=== PATIENT | female | born 1970 | race Caucasian/White ===

== ENCOUNTER → 2017-07-11 08:29 | Outpatient (CLI) | payer BC, SELFPAY ==
--- NOTE | 2017-07-11 08:32 | MM_ITS ---
MM Dig screening mamm BI w/CAD CAD Screening COMPARISON: Digital mammograms 12/28/2014 and 02/18/2016 INDICATION: There is no personal or family history of breast cancer. TECHNIQUE: Standard CC and MLO images were obtained. R2 CAD reviewed. FINDINGS: Moderate diffuse fiberglass or densities are seen in the central portions of both breast. Again is a dominant density just deep to the nipple the right breast at 12:00 position found be due to a benign cyst on ultrasound 01/19/2015 and it is either stable or may have shown a slight decrease in size from the most recent study. There is a benign-appearing calcification right breast. There are no suspicious microcalcifications. IMPRESSION: Moderate breast density with stable asymmetric benign-appearing density right breast BI-RADS Category: 2 Benign Finding(s) RECOMMENDED FOLLOW-UP: 1YR - 1 YEAR FOLLOW-UP (A letter has been sent to the patient regarding results of the study.)
== END ==
PROVIDERS: PCP Family Medicine; Visit Provider Nurse Practitioner Obstetrics & Gynecology
DX: Z12.31 Encounter for screening mammogram for malignant neoplasm of breast (principal)
CPT/HCPCS: 77067

== ENCOUNTER → 2019-03-07 09:21 | Outpatient (CLI) | payer BC, SELFPAY ==
--- NOTE | 2019-03-07 09:28 | MM_ITS ---
PROCEDURE: MM DIG SCREENING MAMM BI W/CAD CLINICAL INDICATION: Routine Screening Mammogram There is no personal or family history of breast cancer. COMPARISON: DMDXUL DIG MAMM-DX UNI-LT from 01/19/2015 DMSB DIG MAMM-SCREEN LIZZETTE from 02/18/2016 [facility] MM Dig screening mamm BI w/CAD from 07/11/2017 TECHNIQUE: Standard CC and MLO images were obtained. R2 CAD reviewed. FINDINGS: Diffuse fibroglandular densities are seen throughout both breast most prominent in the upper outer quadrants. Findings of bilateral and symmetrical except for the stable asymmetric benign-appearing density right breast shown to be a cyst on previous ultrasound exam. It is actually slightly smaller in size than on previous exams. There is no suspicious lesion and no suspicious microcalcifications. IMPRESSION: Moderate diffuse breast density with no suspicious lesions seen BI-RAD Category: 2 Benign Finding(s) FOLLOW-UP: 1YR 1 Year Follow-up (A letter has been sent to the patient regarding results of the study.) Dictated by: Dr. Porfirio Gallego MD 03/08/2019 15:[address] Porfirio Gallego MD in [place] 03/08/2019 15:41
== END ==
PROVIDERS: PCP Family Medicine; Visit Provider Nurse Practitioner Obstetrics & Gynecology
DX: Z12.31 Encounter for screening mammogram for malignant neoplasm of breast (principal)
CPT/HCPCS: 77067

== ENCOUNTER → 2020-03-15 09:57 | Outpatient (CLI) | payer BC, SELFPAY ==
--- NOTE | 2020-03-15 10:02 | MM_ITS ---
PROCEDURE: MM DIG SCREENING MAMM BI W/CAD Digital Breast Tomosynthesis Included CLINICAL INDICATION: SCREENING There is no personal or family history of breast cancer. COMPARISON: MG DMSB DIG MAMM-SCREEN LIZZETTE from 02/18/2016 MG [facility] MM Dig screening mamm BI w/CAD from 07/11/2017 MG MM DIG SCREENING MAMM BI W/CAD from 03/07/2019 TECHNIQUE: Standard CC and MLO images and 3D Tomosynthesis was obtained. R2 CAD reviewed. FINDINGS: Moderate diffuse fibroglandular densities are seen in both breasts. There is stable somewhat asymmetric glandular elements upper-outer quadrant right breast. Persistent density upper-outer quadrant right breast is again seen shown to be a cyst on previous ultrasound exam. However there has been interval enlargement of this probable cyst since the previous exam and recommend the patient return for ultrasound right breast. There is no suspicious lesion no suspicious microcalcifications. IMPRESSION: Fibrofatty parenchyma with possible change in density right breast BI-RAD Category: 0 Need Additional Imaging Evaluation FOLLOW-UP: IMM Immediate Follow-up Recommended (A letter has been sent to the patient regarding results of the study.) Dictated by: Dr. Porfirio Gallego MD 03/16/2020 10:08 Dr. Porfirio Gallego MD in [place] 03/16/2020 10:08
== END ==
PROVIDERS: PCP Family Medicine; Visit Provider Obstetrics & Gynecology
DX: Z12.31 Encounter for screening mammogram for malignant neoplasm of breast (principal)
CPT/HCPCS: 77063; 77067

== ENCOUNTER → 2020-03-23 14:32 | Outpatient (CLI) | payer BC, SELFPAY ==
--- NOTE | 2020-03-23 14:32 | US_ITS ---
PROCEDURE: MM DIG MAMM DX UNILAT RT CAD DIGITAL BREAST TOMOSYNTHESIS INCLUDED RIGHT BREAST ULTRASOUND COMPLETE WITH AXILLA CLINICAL INDICATION: palpable rt breast nodule COMPARISON: US BR US BREAST-RT COMPLETE W/AXILLA from 01/19/2015 MG [facility] MM Dig screening mamm BI w/CAD from 07/11/2017 MG MM DIG SCREENING MAMM BI W/CAD from 03/07/2019 MG MM DIG SCREENING MAMM BI W/CAD from 03/15/2020 US US BREAST RT COMPLETE from 03/23/2020 TECHNIQUE: Standard CC and MLO images and 3D Tomosynthesis was obtained. R2 CAD reviewed. FINDINGS: Right-sided mammogram shows average fibroglandular tissue. Asymmetric increased density is present in the upper inner aspect of the right breast. This is rounded in nature measuring approximately 2 cm. This is not well demonstrated on the focal spot compression views this does correspond to the abnormality noted on the screening mammogram. There is some mild skin thickening of the right breast. Right breast ultrasound: There is a hypoechoic mass in the 12 o'clock region of the right breast corresponding to the mammographic abnormality. This measures approximately 2 by 2.6 cm. The margins are lobulated. There is some slight enhanced through transmission of sound. This has developed since the previous ultrasound. Previously there was a simple cyst in this area on 01/19/2015. There are other small cyst noted in the right breast. In addition, there is a 14 x 10 mm hypoechoic nodule at the 11 o'clock region near the nipple. This does show low level internal echoes but does show some enhanced through transmission of sound. In the right axilla there is an enlarged lymph node which measures 3.7 by 2 cm. This node is hypoechoic and is suspicious. IMPRESSION: Suspicious 2.5 cm mass in the 12 o'clock region of the right breast with an additional mildly suspicious nodule in the henley o'clock region at 14 mm and also an enlarged lymph node in the right axilla. BI-RAD Category: 5 Highly Suggestive Of Malignancy FOLLOW-UP: Suggest ultrasound-guided mammotome biopsy of the 12 o'clock breast mass, fine needle aspiration or core biopsy of the eleven o'clock nodule, and FNA of the enlarged right axillary lymph node. (A letter has been sent to the patient regarding results of the study.) Dictated by: Tanner Burks MD 03/25/2020 10:58 Tanner Burks MD in [place] 03/25/2020 10:58
== END ==
PROVIDERS: PCP Family Medicine; Visit Provider Obstetrics & Gynecology
DX: R92.8 Other abnormal and inconclusive findings on diagnostic imaging of breast (principal)
CPT/HCPCS: 76641; 77061; 77065; G0279

== ENCOUNTER → 2020-04-06 09:34 | Outpatient (CLI) | payer BC, SELFPAY ==
--- NOTE | 2020-04-06 | MM_ITS ---
PROCEDURE: US BIOPSY BREAST RT CLINICAL INDICATION: US guided breast biopsy Right breast nodule COMPARISON: MG MM DIG SCREENING MAMM BI W/CAD from 03/15/2020 US US BREAST RT COMPLETE from 03/23/2020 MG MM CLIP PLACEMENT RT from 04/06/2020 FINDINGS: Time-out procedure was performed. Under aseptic conditions and local anesthesia with 1 percent buffered lidocaine and deeper anesthesia with lidocaine mixed with epinephrine mammotome needle was inserted into the suspicious nodule at 12 o'clock and multiple cores were obtained. Sterile non ferromagnetic clip was placed. Following this, fine needle aspiration was performed of the small solid-appearing nodule at 11 o'clock and at 10 o'clock. Fine needle aspiration was then performed of the palpable right axillary node.. No immediate complications. Mammo clip placement: Post biopsy mammogram demonstrates postsurgical changes with a clip placed along the anterior and lateral aspect of the central breast nodule. Pathology: 12 o'clock breast nodule invasive ductal carcinoma grade 3 Axillary lymph node FNA: Malignant FNA 11 o'clock: Negative for malignant cells. FNA 10 o'clock: Atypical IMPRESSION: Uneventful ultrasound-guided mammotome biopsy of the right breast at 12 o'clock demonstrating invasive ductal carcinoma. FNA of axillary lymph node is malignant. FNA at 11 o'clock negative for malignant cells. FNA 10 o'clock atypical cells. Heme Onc and surgical consult recommended. Dictated by: Tanner Burks MD 05/10/2020 19:44 Tanner Burks MD in [place] 05/10/2020 19:44
== END ==
PROVIDERS: PCP Family Medicine; Visit Provider Obstetrics & Gynecology
DX: R92.8 Other abnormal and inconclusive findings on diagnostic imaging of breast (principal); C50.811 Malignant neoplasm of overlapping sites of right female breast; Z17.1 Estrogen receptor negative status [ER-]
CPT/HCPCS: 19083; 77065; C2618

== ENCOUNTER → 2022-04-27 06:57 | Outpatient (CLI) | payer BC, SELFPAY ==
[2022-04-27 18:04] LABS: Basophils # 0.1 K/mm3 (0-0.2); Basophils % 0.9 % (0.1-2.0); Eosinophils # 0.2 K/mm3 (0.0-0.4); Eosinophils % 2.5 % (0.1-12.0); Hematocrit 45.1 % (37.0-47.0); Hemoglobin 14.2 g/dL (12.2-16.2); Lymphocytes % 33.5 % (10-50); Mean Corpuscular HGB Conc 31.5 g/dL (31.8-35.4); Mean Corpuscular Hemoglobin 32.3 pg (27.0-31.2); Mean Corpuscular Volume 102.6 fl (81-99); Mean Platelet Volume 8.8 fl (7.4-10.4); Monocytes # 0.4 K/mm3 (0.1-1.0); Monocytes % 6.7 % (1.7-9.3); Neutrophils # 3.3 K/mm3 (1.8-7.8); Neutrophils % 56.4 % (37.0-80.0); Platelet Count 328 K/mm3 (142-424); Red Cell Distribution Width 13.5 % (11.5-17.5); White Blood Count 5.9 K/mm3 (4.8-10.8)
[2022-04-27 18:29] LABS: Alanine Aminotransferase 26 U/L (12-78); Albumin Level 4.9 g/dl (3.5-5.0); Albumin/Globulin Ratio 1.4 (1.1-1.8); Alkaline Phosphatase 71 U/L (38-126); Anion Gap 12.5 mEq/L (5-15); Aspartate Amino Transferase 27 U/L (14-36); Bilirubin,Total 0.6 mg/dl (0.2-1.3); Blood Urea Nitrogen 13 mg/dl (7-17); Calcium 9.6 mg/dl (8.4-10.2); Carbon Dioxide 28 mmol/L (22.0-30.0); Chloride 103 mmol/L (98-107); Chol/HDL Ratio 5.5 (1-3.5); Cholesterol 283 mg/dl (140-200); Estimated Glomerular Filt Rate 88 ml/min (>60); GFR (African American) 106 ML/MIN (>60); Globulin 3.6 g/dL (1.3-3.2); Glucose 93 mg/dl (74-100); HDL Cholesterol 51 mg/dl (40-60); Hemoglobin A1C 5.8 % (4.0-6.0); Potassium 4.5 mmoL/L (3.5-5.1); Sodium 139 mmol/L (136-145); Total Protein,Serum 8.5 g/dl (6.3-8.2); Triglycerides 87 mg/dl (30-150); VLDL Cholesterol 17 mg/dL (0-40)
[2022-04-27 18:40] LABS: Direct LDL Cholesterol 193.73 mg/dL (100-129)
[2022-04-27 18:46] LABS: 25-OH Vitamin D, Total 25.2 ng/mL (30-100)
[2022-04-27 19:20] LABS: Vitamin B12 787 pg/mL (239-931)
== END ==
PROVIDERS: PCP Nurse Practitioner; Visit Provider Nurse Practitioner
DX: I10 Essential (primary) hypertension (principal); E55.9 Vitamin D deficiency, unspecified; Z13.1 Encounter for screening for diabetes mellitus; Z13.220 Encounter for screening for lipoid disorders; Z13.29 Encounter for screening for other suspected endocrine disorder; Z85.3 Personal history of malignant neoplasm of breast; Z79.899 Other long term (current) drug therapy
CPT/HCPCS: 80053; 80061; 82306; 82607; 83036; 84443; 85025

== ENCOUNTER → 2022-07-17 23:16 | Outpatient (CLI) | payer BC, SELFPAY ==
[2022-07-17 18:27] LABS: Alanine Aminotransferase 26 U/L (12-78); Albumin Level 4.6 g/dl (3.5-5.0); Albumin/Globulin Ratio 1.6 (1.1-1.8); Alkaline Phosphatase 64 U/L (38-126); Anion Gap 11.6 mEq/L (5-15); Aspartate Amino Transferase 27 U/L (14-36); Bilirubin,Total 0.6 mg/dl (0.2-1.3); Blood Urea Nitrogen 16 mg/dl (7-17); Calcium 9.1 mg/dl (8.4-10.2); Carbon Dioxide 28 mmol/L (22.0-30.0); Chloride 105 mmol/L (98-107); Chol/HDL Ratio 3.4 (1-3.5); Cholesterol 165 mg/dl (140-200); Estimated Glomerular Filt Rate 105 ml/min (>60); GFR (African American) 127 ML/MIN (>60); Globulin 2.8 g/dL (1.3-3.2); Glucose 98 mg/dl (74-100); HDL Cholesterol 48 mg/dl (40-60); Potassium 4.6 mmoL/L (3.5-5.1); Sodium 140 mmol/L (136-145); Total Protein,Serum 7.4 g/dl (6.3-8.2); Triglycerides 71 mg/dl (30-150); VLDL Cholesterol 14 mg/dL (0-40)
[2022-07-17 18:45] LABS: Free T4 (Free Thyroxine) 1.13 ng/dl (0.78-2.19)
[2022-07-17 18:46] LABS: 25-OH Vitamin D, Total 64.3 ng/mL (30-100)
[2022-07-17 18:59] LABS: Thyroid Stimulating Hormone 3.98 uIU/mL (0.465-4.68)
[2022-07-17 21:26] LABS: Direct LDL Cholesterol 92.52 mg/dL (100-129)
== END ==
PROVIDERS: PCP Nurse Practitioner; Visit Provider Nurse Practitioner
DX: E03.9 Hypothyroidism, unspecified (principal); E55.9 Vitamin D deficiency, unspecified; E78.5 Hyperlipidemia, unspecified; I10 Essential (primary) hypertension; E66.9 Obesity, unspecified; Z68.30 Body mass index [BMI] 30.0-30.9, adult
CPT/HCPCS: 80053; 80061; 82306; 84439; 84443

== ENCOUNTER 2022-08-08 10:26 | Day surgery (SDC) | payer BC, SELFPAY ==
[2022-08-07 12:29] VITALS: BMI 30.1
[2022-08-08 10:42] VITALS: BP 177/99; PULSE 104; RESP 17; TEMP 37.3; O2SAT 94
--- NOTE | 2022-08-08 10:50 | EXP.ANES.CKL ---
[facility] Disclaimer: The information contained in this section may have been updated after the patient was seen, as this information can be updated by other users. Medical History Acquired hypothyroidism Essential hypertension Essential hypertension History of breast cancer Hyperlipidemia Lymphedema of upper extremity following lymphadenectomy Obesity Vitamin D deficiency Surgical History History of cholecystectomy Family History Other No significant family history Social History Smoking Status: Never smoker alcohol intake: never substance use type: denies use current occupational status: employed Travel in the last 8 weeks: None caffeine: Yes [facility] Anesthesia Checklist Patient Identification Patient Identification: Arm Band and Verbal (Name & ) Structural Data Admitted From: Home Planned Operative Procedure/s: Colonoscopy Consent for Planned Operative Procedure(s) Verified: Yes Verified Documents: Surgical Consent NPO Status Verified Time NPO: 04:00 Airway Assessment C-Spine Mobility Assessed: Yes TMJ Mobility Assessed: Yes Dentition: Good Dentition Neurological Assessment Level of Consciousness: Awake, Alert and Appropriate Anesthesia Plan Anesthesia Risk discussed: Yes ASA Class: II Anesthesia Type: MAC
[2022-08-08 11:29] VITALS: O2SAT 94
[2022-08-08 12:06] VITALS: BP 119/73; PULSE 91; RESP 16; TEMP 36.5; O2SAT 95
--- NOTE | 2022-08-08 12:11 | P.PCN_ITS ---
Procedure: Date: 08/08/22 Patient Date of :: 1970 Procedure Performed:: Colonoscopy Indications:: Screening Performing Provider:: Tyrel Nixon MD Referring Provider:: . Sedation:: Monitored anesthesia care Procedure:: After informed consent was obtained the patient was taken to the endoscopy suite. Sedation ensued after the patient was transferred to the left lateral decubitus position. Pulse, blood pressure, and oxygen saturation were monitored throughout the procedure. Digital rectal exam revealed no significant abnormality. The colonoscope was placed in position. The entire colon was eval uated. The colonoscope was carefully removed and the patient was transferred to recovery in stable condition. Please see findings and specimens below for detail. Findings:: Bowel preparation fair Hemorrhoidal tags Moderate spasticity/lack of relaxation Specimens:: None Recommendations:: Repeat colonoscopy in 3-5 years secondary to spasticity/lack of relaxation. If no abnormalities are noted on repeat colonoscopy timing of subsequent colonosco pies will likely be extended. Complications:: No immediate Estimated blood obtained (mL): 0
[2022-08-08 12:16] VITALS: BP 117/71; PULSE 86; RESP 17; O2SAT 98
[2022-08-08 12:26] VITALS: BP 128/82; PULSE 81; RESP 17; TEMP 36.5; O2SAT 97
[2022-08-08 12:33] VITALS: BP 146/77; PULSE 71; RESP 18; O2SAT 98
== END 2022-08-08 12:36 | disposition home or self-care (01) ==
PROVIDERS: PCP Nurse Practitioner; Visit Provider Surgery
PROC: 0DJD8ZZ Inspection of Lower Intestinal Tract, Via Natural or Artificial Opening Endoscopic (ICD-10-PCS; CPT 45378; principal; 2022-08-08 12:30)
DX: Z12.11 Encounter for screening for malignant neoplasm of colon (principal); Z79.899 Other long term (current) drug therapy
CPT/HCPCS: 45378

== ENCOUNTER → 2022-10-25 23:00 | Outpatient (CLI) | payer BC, SELFPAY ==
[2022-10-25 19:10] LABS: Alanine Aminotransferase 25 U/L (12-78); Albumin Level 4.6 g/dl (3.5-5.0); Albumin/Globulin Ratio 1.5 (1.1-1.8); Alkaline Phosphatase 75 U/L (38-126); Anion Gap 12.9 mEq/L (5-15); Aspartate Amino Transferase 26 U/L (14-36); Bilirubin,Total 0.6 mg/dl (0.2-1.3); Blood Urea Nitrogen 13 mg/dl (7-17); Calcium 9.4 mg/dl (8.4-10.2); Carbon Dioxide 29 mmol/L (22.0-30.0); Chloride 102 mmol/L (98-107); Chol/HDL Ratio 3.4 (1-3.5); Cholesterol 165 mg/dl (140-200); Estimated Glomerular Filt Rate 105 ml/min (>60); GFR (African American) 127 ML/MIN (>60); Glucose 100 mg/dl (74-100); HDL Cholesterol 49 mg/dl (40-60); Potassium 4.9 mmoL/L (3.5-5.1); Sodium 139 mmol/L (136-145); Total Protein,Serum 7.6 g/dl (6.3-8.2); Triglycerides 83 mg/dl (30-150); VLDL Cholesterol 17 mg/dL (0-40)
[2022-10-25 19:29] LABS: Free T4 (Free Thyroxine) 1.15 ng/dl (0.78-2.19)
[2022-10-25 19:33] LABS: Direct LDL Cholesterol 85.26 mg/dL (100-129)
[2022-10-25 19:43] LABS: Thyroid Stimulating Hormone 4.42 uIU/mL (0.465-4.68)
== END ==
PROVIDERS: PCP Nurse Practitioner; Visit Provider Nurse Practitioner
DX: E03.9 Hypothyroidism, unspecified (principal); E78.5 Hyperlipidemia, unspecified; I10 Essential (primary) hypertension; E66.9 Obesity, unspecified; Z68.29 Body mass index [BMI] 29.0-29.9, adult
CPT/HCPCS: 80053; 80061; 84439; 84443

== ENCOUNTER → 2023-01-17 12:00 | Outpatient (CLI) | payer BC, SELFPAY ==
[2023-01-17 18:33] LABS: Basophils % 0.7 % (0.1-2.0); Eosinophils # 0.3 K/mm3 (0.0-0.4); Eosinophils % 4.9 % (0.1-12.0); Hematocrit 43.6 % (37.0-47.0); Hemoglobin 13.6 g/dL (12.2-16.2); Lymphocytes # 1.8 K/mm3 (0.7-4.5); Lymphocytes % 35.2 % (10-50); Mean Corpuscular HGB Conc 31.2 g/dL (31.8-35.4); Mean Corpuscular Hemoglobin 31.2 pg (27.0-31.2); Mean Corpuscular Volume 100.1 fl (81-99); Monocytes # 0.3 K/mm3 (0.1-1.0); Monocytes % 6.3 % (1.7-9.3); Neutrophils # 2.7 K/mm3 (1.8-7.8); Neutrophils % 52.9 % (37.0-80.0); Platelet Count 305 K/mm3 (142-424); Red Blood Count 4.36 M/mm3 (4.20-5.40); Red Cell Distribution Width 13.3 % (11.5-17.5); White Blood Count 5.1 K/mm3 (4.8-10.8)
[2023-01-17 18:57] LABS: Alanine Aminotransferase 36 U/L (12-78); Albumin Level 4.6 g/dl (3.5-5.0); Albumin/Globulin Ratio 1.3 (1.1-1.8); Alkaline Phosphatase 66 U/L (38-126); Anion Gap 13.5 mEq/L (5-15); Aspartate Amino Transferase 32 U/L (14-36); Bilirubin,Total 0.4 mg/dl (0.2-1.3); Blood Urea Nitrogen 12 mg/dl (7-17); Calcium 9.6 mg/dl (8.4-10.2); Carbon Dioxide 26 mmol/L (22.0-30.0); Chloride 105 mmol/L (98-107); Chol/HDL Ratio 3.3 (1-3.5); Cholesterol 147 mg/dl (140-200); Estimated Glomerular Filt Rate 104 ml/min (>60); GFR (African American) 126 ML/MIN (>60); Globulin 3.5 g/dL (1.3-3.2); Glucose 94 mg/dl (74-100); HDL Cholesterol 45 mg/dl (40-60); Potassium 4.5 mmoL/L (3.5-5.1); Sodium 140 mmol/L (136-145); Total Protein,Serum 8.1 g/dl (6.3-8.2); Triglycerides 58 mg/dl (30-150); VLDL Cholesterol 12 mg/dL (0-40)
[2023-01-17 19:08] LABS: Direct LDL Cholesterol 81.63 mg/dL (100-129)
[2023-01-17 19:12] LABS: Free T4 (Free Thyroxine) 1.07 ng/dl (0.78-2.19)
[2023-01-17 19:13] LABS: 25-OH Vitamin D, Total 87.3 ng/mL (30-100)
[2023-01-17 19:30] LABS: Thyroid Stimulating Hormone 2.43 uIU/mL (0.465-4.68)
[2023-01-17 19:50] LABS: Vitamin B12 796 pg/mL (239-931)
[2023-01-17 19:56] LABS: Hemoglobin A1C 5.2 % (4.0-6.0)
== END ==
PROVIDERS: PCP Nurse Practitioner; Visit Provider Nurse Practitioner
DX: E03.9 Hypothyroidism, unspecified (principal); I10 Essential (primary) hypertension; E55.9 Vitamin D deficiency, unspecified; E78.5 Hyperlipidemia, unspecified; E66.9 Obesity, unspecified
CPT/HCPCS: 80053; 80061; 82306; 82607; 83036; 84439; 84443; 85025

== ENCOUNTER 2023-04-30 18:44 | Outpatient (CLI) | payer BC, SELFPAY ==
[2023-04-30 18:28] LABS: Chloride 105 mmol/L (98-107)
[2023-04-30 18:29] LABS: Potassium 4.3 mmoL/L (3.5-5.1); Sodium 139 mmol/L (136-145)
[2023-04-30 18:31] LABS: Alanine Aminotransferase 29 U/L (12-78); Alkaline Phosphatase 64 U/L (38-126); Aspartate Amino Transferase 30 U/L (14-36); Bilirubin,Total 0.6 mg/dl (0.2-1.3); Blood Urea Nitrogen 13 mg/dl (7-17); Estimated Glomerular Filt Rate 104 ml/min (>60); GFR (African American) 126 ML/MIN (>60)
[2023-04-30 18:32] LABS: Albumin Level 4.7 g/dl (3.5-5.0); Albumin/Globulin Ratio 1.6 (1.1-1.8); Anion Gap 12.3 mEq/L (5-15); Carbon Dioxide 26 mmol/L (22.0-30.0); Chol/HDL Ratio 3.8 (1-3.5); Cholesterol 164 mg/dl (140-200); Globulin 2.9 g/dL (1.3-3.2); Glucose 97 mg/dl (74-100); HDL Cholesterol 43 mg/dl (40-60); Total Protein,Serum 7.6 g/dl (6.3-8.2); Triglycerides 83 mg/dl (30-150); VLDL Cholesterol 17 mg/dL (0-40)
[2023-04-30 18:43] LABS: Direct LDL Cholesterol 89.18 mg/dL (100-129)
[2023-04-30 18:55] LABS: Free T4 (Free Thyroxine) 1.16 ng/dl (0.78-2.19)
[2023-04-30 19:05] LABS: Thyroid Stimulating Hormone 3.64 uIU/mL (0.465-4.68)
[2023-04-30 19:49] LABS: 25-OH Vitamin D, Total 87.1 ng/mL (30-100)
[2023-04-30 20:06] LABS: Microalbumin/Creatinine Ratio 14.8
[2023-04-30 20:08] LABS: Creatinine,Urine Random 189 mg/dL (Not Estab.)
== END 2023-04-30 23:59 ==
LOC: LAB.DROPOF 18:44
PROVIDERS: PCP Nurse Practitioner; Visit Provider Nurse Practitioner
DX: E03.9 Hypothyroidism, unspecified (principal); E55.9 Vitamin D deficiency, unspecified; E78.5 Hyperlipidemia, unspecified; I10 Essential (primary) hypertension; E66.3 Overweight; Z68.28 Body mass index [BMI] 28.0-28.9, adult
CPT/HCPCS: 80053; 80061; 82043; 82306; 82570; 84439; 84443

== ENCOUNTER 2023-07-24 14:00 | Outpatient (CLI) | payer BC, SELFPAY ==
[2023-07-24 18:49] LABS: Alanine Aminotransferase 26 U/L (12-78); Albumin Level 4.6 g/dl (3.5-5.0); Albumin/Globulin Ratio 1.6 (1.1-1.8); Alkaline Phosphatase 62 U/L (38-126); Anion Gap 11.2 mEq/L (5-15); Aspartate Amino Transferase 28 U/L (14-36); Bilirubin,Total 0.5 mg/dl (0.2-1.3); Blood Urea Nitrogen 11 mg/dl (7-17); Calcium 10.1 mg/dl (8.4-10.2); Carbon Dioxide 28 mmol/L (22.0-30.0); Chloride 106 mmol/L (98-107); Chol/HDL Ratio 3.8 (1-3.5); Cholesterol 186 mg/dl (140-200); Estimated Glomerular Filt Rate 104 ml/min (>60); GFR (African American) 126 ML/MIN (>60); Globulin 2.9 g/dL (1.3-3.2); Glucose 96 mg/dl (74-100); HDL Cholesterol 49 mg/dl (40-60); Potassium 5.2 mmoL/L (3.5-5.1); Sodium 140 mmol/L (136-145); Total Protein,Serum 7.5 g/dl (6.3-8.2); Triglycerides 90 mg/dl (30-150); VLDL Cholesterol 18 mg/dL (0-40)
[2023-07-24 19:01] LABS: Direct LDL Cholesterol 94.44 mg/dL (100-129)
[2023-07-24 19:10] LABS: Free T4 (Free Thyroxine) 1.07 ng/dl (0.78-2.19)
[2023-07-24 19:22] LABS: Thyroid Stimulating Hormone 4.07 uIU/mL (0.465-4.68)
== END 2023-07-24 23:59 | disposition home or self-care (01) ==
LOC: LAB.DROPOF 07-25 14:01
PROVIDERS: PCP Nurse Practitioner; Visit Provider Nurse Practitioner
DX: I10 Essential (primary) hypertension (principal); E78.5 Hyperlipidemia, unspecified; E03.9 Hypothyroidism, unspecified; E66.9 Obesity, unspecified; Z68.29 Body mass index [BMI] 29.0-29.9, adult
CPT/HCPCS: 80053; 80061; 84439; 84443

== ENCOUNTER 2024-01-17 11:16 | Outpatient (CLI) | payer BC, SELFPAY ==
[2024-01-17 18:21] LABS: Basophils % 0.7 % (0.1-2.0); Eosinophils # 0.2 K/mm3 (0.0-0.4); Hematocrit 43.3 % (37.0-47.0); Hemoglobin 13.7 g/dL (12.2-16.2); Lymphocytes # 1.7 K/mm3 (0.7-4.5); Lymphocytes % 36.8 % (10-50); Mean Corpuscular HGB Conc 31.7 g/dL (31.8-35.4); Mean Corpuscular Hemoglobin 32.5 pg (27.0-31.2); Mean Corpuscular Volume 102.8 fl (81-99); Mean Platelet Volume 8.1 fl (7.4-10.4); Monocytes # 0.4 K/mm3 (0.1-1.0); Monocytes % 7.8 % (1.7-9.3); Neutrophils # 2.3 K/mm3 (1.8-7.8); Neutrophils % 49.7 % (37.0-80.0); Platelet Count 302 K/mm3 (142-424); Red Blood Count 4.22 M/mm3 (4.20-5.40); Red Cell Distribution Width 13.2 % (11.5-17.5); White Blood Count 4.7 K/mm3 (4.8-10.8)
[2024-01-17 18:36] LABS: Alanine Aminotransferase 25 U/L (12-78); Albumin Level 4.5 g/dl (3.5-5.0); Albumin/Globulin Ratio 1.6 (1.1-1.8); Alkaline Phosphatase 74 U/L (38-126); Aspartate Amino Transferase 26 U/L (14-36); Bilirubin,Total 0.5 mg/dl (0.2-1.3); Blood Urea Nitrogen 17 mg/dl (7-17); Calcium 9.9 mg/dl (8.4-10.2); Carbon Dioxide 29 mmol/L (22.0-30.0); Chloride 105 mmol/L (98-107); Chol/HDL Ratio 3.7 (1-3.5); Cholesterol 217 mg/dl (140-200); Estimated Glomerular Filt Rate 104 ml/min (>60); GFR (African American) 126 ML/MIN (>60); Globulin 2.8 g/dL (1.3-3.2); Glucose 104 mg/dl (74-100); HDL Cholesterol 58 mg/dl (40-60); Sodium 138 mmol/L (136-145); Total Protein,Serum 7.3 g/dl (6.3-8.2); Triglycerides 65 mg/dl (30-150); VLDL Cholesterol 13 mg/dL (0-40)
[2024-01-17 18:47] LABS: Direct LDL Cholesterol 133.97 mg/dL (100-129)
[2024-01-17 18:49] LABS: Hemoglobin A1C 5.8 % (4.0-6.0)
[2024-01-17 18:53] LABS: Free T4 (Free Thyroxine) 1.06 ng/dl (0.78-2.19)
[2024-01-17 18:54] LABS: 25-OH Vitamin D, Total 79.5 ng/mL (30-100)
[2024-01-17 19:25] LABS: Vitamin B12 847 pg/mL (239-931)
== END 2024-01-17 23:59 | disposition home or self-care (01) ==
LOC: LAB.DROPOF 01-18 11:16
PROVIDERS: PCP Nurse Practitioner; Visit Provider Nurse Practitioner
DX: E78.5 Hyperlipidemia, unspecified (principal); I10 Essential (primary) hypertension; E03.9 Hypothyroidism, unspecified; E55.9 Vitamin D deficiency, unspecified; Z68.29 Body mass index [BMI] 29.0-29.9, adult
CPT/HCPCS: 80050; 80053; 80061; 82306; 82607; 83036; 84439; 84443; 85025

== ENCOUNTER 2024-07-14 10:19 | Outpatient (CLI) | payer BC, SELFPAY ==
[2024-07-14 18:57] LABS: Basophils % 0.4 % (0.1-2.0); Eosinophils # 0.1 K/mm3 (0.0-0.4); Eosinophils % 1.6 % (0.1-12.0); Hematocrit 41.5 % (37.0-47.0); Hemoglobin 13.9 g/dL (12.2-16.2); Lymphocytes # 1.6 K/mm3 (0.7-4.5); Lymphocytes % 31.4 % (10-50); Mean Corpuscular HGB Conc 33.5 g/dL (31.8-35.4); Mean Corpuscular Hemoglobin 32.9 pg (27.0-31.2); Mean Corpuscular Volume 98.1 fl (81-99); Mean Platelet Volume 9.9 fl (7.4-10.4); Monocytes # 0.5 K/mm3 (0.1-1.0); Monocytes % 10.2 % (1.7-9.3); Neutrophils # 2.9 K/mm3 (1.8-7.8); Neutrophils % 56.4 % (37.0-80.0); Platelet Count 274 K/mm3 (142-424); Red Blood Count 4.23 M/mm3 (4.20-5.40); Red Cell Distribution Width 13.5 % (11.5-17.5); White Blood Count 5.1 K/mm3 (4.8-10.8)
[2024-07-14 20:20] LABS: Hemoglobin A1C 5.4 % (4.0-6.0)
[2024-07-14 20:55] LABS: Alanine Aminotransferase 20 U/L (12-78); Albumin Level 4.3 g/dl (3.5-5.0); Albumin/Globulin Ratio 1.3 (1.1-1.8); Alkaline Phosphatase 50 U/L (38-126); Anion Gap 15.7 mEq/L (5-15); Aspartate Amino Transferase 24 U/L (14-36); Bilirubin,Total 0.5 mg/dl (0.2-1.3); Blood Urea Nitrogen 11 mg/dl (7-17); Calcium 10.2 mg/dl (8.4-10.2); Carbon Dioxide 26 mmol/L (22.0-30.0); Chloride 103 mmol/L (98-107); Chol/HDL Ratio 3.5 (1-3.5); Cholesterol 150 mg/dl (140-200); Estimated Glomerular Filt Rate 87 ml/min (>60); GFR (African American) 105 ML/MIN (>60); Globulin 3.2 g/dL (1.3-3.2); Glucose 95 mg/dl (74-100); HDL Cholesterol 43 mg/dl (40-60); Potassium 5.7 mmoL/L (3.5-5.1); Sodium 139 mmol/L (136-145); Total Protein,Serum 7.5 g/dl (6.3-8.2); Triglycerides 93 mg/dl (30-150); VLDL Cholesterol 19 mg/dL (0-40)
[2024-07-14 21:06] LABS: Direct LDL Cholesterol 79.73 mg/dL (100-129)
[2024-07-14 21:14] LABS: Free T4 (Free Thyroxine) 1.26 ng/dl (0.78-2.19)
[2024-07-14 21:26] LABS: Thyroid Stimulating Hormone 3.54 uIU/mL (0.465-4.68)
[2024-07-14 21:45] LABS: Vitamin B12 728 pg/mL (239-931)
[2024-07-14 22:52] LABS: Microalbumin/Creatinine Ratio 5.6
[2024-07-14 23:02] LABS: Creatinine,Urine Random 268 mg/dL (Not Estab.)
== END 2024-07-14 23:59 | disposition home or self-care (01) ==
LOC: LAB.DROPOF 07-16 10:20
PROVIDERS: PCP Nurse Practitioner; Visit Provider Nurse Practitioner
DX: E78.5 Hyperlipidemia, unspecified (principal); E03.9 Hypothyroidism, unspecified; I10 Essential (primary) hypertension; E55.9 Vitamin D deficiency, unspecified; E66.9 Obesity, unspecified
CPT/HCPCS: 80053; 80061; 82043; 82306; 82570; 82607; 83036; 84439; 84443; 85025

== ENCOUNTER 2025-01-05 15:46 | Outpatient (CLI) | payer BC, SELFPAY ==
--- OUTSIDE RECORDS SUMMARY | 2024-01-02 05:00 | XMS_ITS | Encounter Summary ---
Author Organization [facility] Address [address] [place] [id number] Care Team Providers Care Neuropsychiatrist Name Role Phone Jason Marrero MD Primary Care Provider [phone] Encounter Details Date Type Department Care Team (Late st Contact Info) Description 01/02/2024 5:00 AM EDT Hospital Encounter [facility] [address] [facility] [address] [place] [address] Social History Tobacco Use Types Packs/Day Years Used Date Smoking Tobacco: Never Alcohol Use Standard Drinks/Week Comments Never 0 (1 standard drink = 0.6 oz pur e alcohol) AUDIT-C Answer Date Recorded Q1: How often do you have a drink containing alc ohol? Never 11/03/2020 Average Number of Drinks Not on file 021 Frequency of Binge Drinking Not on file 10/15 PHQ-2 Answer Date Recorded Retired PHQ-9: Brief Depression Severity Measure Score 0 06/29/2022 Abuse Screen Answer Date Recorded Feels Unsafe at Home or Work/School no 01/02/2024 Feels Threatened by Someone no 12/15 Does Anyone Try to Keep You From Having Contact with Others or Doing Things Outside Your Home? no 01/02/2024 Physical Signs of Abuse Present no 01/02/2024 Housing Stability Answer Date Recorded Current Living Arrangements home 12/15 Potentially Unsafe Housing Conditions Not on kamari e 12/25/2023 Disabilities Answer Date Recorded Difficulty Concentrating, Remembering or Making Decisions no 12/25/2023 Difficulty Managing Errands Independently no 12/25/2023 PHQ-2 Answer Date Recorded Patient Health Questionnaire-2 Score 0 09/12/2024 Comments No Sex and Gender Information Value Date Recorded Sex Assigned at Female 08/28/2024 9:55 AM EDT Legal Sex Female 9:27 AM EST Gender Identity Not on file Sexual Orientation Not on file documented as of this encounter Functional Status documented as of this encounter Plan of Treatment Upcoming Encounters Date Type Department Care Team (Late st Contact Info) Description 03/19/2025 9:15 AM EST Office Visit [facility] [address] [facility] [address] [place] [address] Esther Rivera MD [address] [facility] [address] [place] [address] 04/13/2025 8:30 AM EST Office Visit [facility] [address] [place] [address] Yudi Snell APRN [address] [place] [address] 04/23/2025 8:00 AM EST Appointment [facility] [address] [facility] [address] [place], [place] [id number] documented as of this encounter Visit Diagnoses Not on filedocumented in this encounter Care Teams Neuropsychiatrist Relationship Specialty Start Date End Date Jason Marrero MD [address] [facility] [address] [place] [id number] PCP - General Family Medicine 05/05/20 documented as of this encounter
--- OUTSIDE RECORDS SUMMARY | 2024-01-22 05:10 | XMS_ITS | Encounter Summary ---
Author Organization [facility] Address [address] [place] [address] Care Team Providers Care Radioactivity Technician Name Role Phone Jason Marrero MD Primary Care Provider [phone] Reason for Visit * Auth/Cert (Routine) Specialty Diagnoses / Procedures Referred By Jacky recinos Referred To Contact Diagnoses Malignant neoplasm of upper-outer quadrant of right female breast Procedures CHG INTENSITY MODULATED RADIATION TX DLVR SIMPLE Referral ID Status Reason Start Date Expiration Date Visits Re quested Visits Authorized [id number] 1 1 Encounter Details Date Type Department Care Team (Late st Contact Info) Description 01/22/2024 5:10 AM EDT Hospital Encounter [facility] [address] [address] Social History Tobacco Use Types Packs/Day [...] Description 03/19/2025 9:15 AM EST Office Visit [facility] [address] [facility] [address] [place] [address] sEther Rivera MD [address] [facility] [address] [place] [address] 04/13/2025 8:30 AM EST Office Visit [facility] [address] [place] [address] Yudi Snell APRN [address] [place] [address] 04/23/2025 8:00 AM EST Appointment [facility] [address] [facility] [address] [place] [address] documented as of this encounter Visit Diagnoses Not on filedocumented in this encounter Care Teams Radioactivity Technician Relationship Specialty Start Date End Date Jason Marrero MD [facility] [facility] [address] [place] [address] PCP - General Family Medicine 05/05/20 documented as of this encounter
--- OUTSIDE RECORDS SUMMARY | 2025-01-05 15:48 | XMS_ITS | Clinical Summary ---
Author Organization [facility] Address [address] [place] [address] Phone Care Team Providers Care Gasoline Dragline Operator Name Role Phone Unavailable Primary Care Provider Unavailabl e Allergies Active Allergy Reactions Criticality Noted Date Comments Iodinated Contrast Media 07/06/2010 Medications fexofenadine-pse udoephedrine (RAJWINDER-D 24 HOUR) 180-240 mg per tabletIndication s:Seasonal allergies Take 1 Tab by mouth daily. 30 Tab 5 11/15/2010 Active Active Problems Problem Noted Date Diagnosed Date Allergic rhinitis, cause unspecified Medical History Medical History Date Comments Anemia Allergic rhinitis, cause unspecified Social History Tobacco Use Types Packs/Day Years Used Date Smoking Tobacco: Never Smokeless Tobacco: Never Alcohol Use Standard Drinks/Week Comments No 0 (1 standard drink = 0.6 oz pur e alcohol) Comments No Sex and Gender Information Value Date Recorded Sex Assigned at Not on file Legal Sex Female 3:49 AM EDT Gender Identity Not on file Sexual Orientation Not on file Obstetrics History Last Filed Vital Signs Vital Sign Reading Time Taken Comments Blood Pressure 126/82 11/15/2010 10:29 AM EDT Pulse 76 11/15/2010 10:29 AM EDT Temperature 36.6 C (97.8 F) 11/15/2010 10:29 AM EDT Respiratory Rate - - Oxygen Saturation - - Inhaled Oxygen Concentration - - Weight 80.3 kg (177 lb) 11/15/2010 10:29 AM EDT Height 165.1 cm (5' 5 ) 11/15/2010 10:29 AM EDT Body Mass Index 29.45 11/15/2010 10:29 AM EDT Plan of Treatment Health Maintenance Due Date Last Done Comments Annual Wellness Exam 11/21/1971 DTaP/TDaP/Td (1 - Tdap) 11/21/1987 Hepatitis B Vaccine (1 of 3 - 19+ 3-dose series) 11/21/1987 Cologuard 2013 Colon Cancer Screening 2013 Colonoscopy 2013 FIT 2013 Sigmoidoscopy 2013 Virtual Colonography 2013 Pneumococcal Vaccine 50+ (1 of 1 - PCV) 2018 Zoster (1 of 2) 2018 COVID-19 Vaccine (1 - 2023-2 5 season) 2024 Influenza Vaccine (#1) 2024 Meningococcal B Vaccine Aged Out No l onger eligible based on patient's age to complete this topic
--- OUTSIDE RECORDS SUMMARY | 2025-01-05 15:48 | XMS_ITS | Encounter Summary ---
Author Organization [facility] Address [address] [place] [phone] Care Team Providers Care Statistical Methods Professor Name Role Phone Jason Marrero MD Primary Care Provider [phone] Encounter Details Date Type Department Care Team (Late Contact Info) Description 12/26/2020 MDT Assessment [facility] [address] [facility] [address] [place] [address] Mila Nova MD [address] [facility] [address] [place] [address] Social History Tobacco Use Types Packs/Day Years [...] file 10/15 PHQ-2 Answer Date Recorded Retired Total Score 1 05/05/2020 Comments No Sex and Gender Information Value Date Recorded Sex Assigned at Female 08/28/2024 9:55 AM EDT Legal Sex Female 9:27 AM EST Gender Identity Not on file Sexual Orientation Not on file documented as of this encounter Plan of Treatment Upcoming Encounters Date Type Department Care Team (Late st Contact Info) Description 03/19/2025 9:15 AM EST Office Visit [facility] [address] [facility] [address] [place] [address] Esther Rivera MD [address] [facility] [address] [place] [address] 04/13/2025 8:30 AM EST Office Visit [facility] [address] [place] [address] Yudi Snell APRN [address] [place] [address] 04/23/2025 8:00 AM EST Appointment [facility] [address] [facility] [address] [place] [id number] documented as of this encounter Visit Diagnoses Not on filedocumented in this encounter Additional Health Concerns Infection Onset Date Last Indicated Resolved Time COVID Screen (preop/placement) 01/31/2021 02/08/2021 02/08/2021 6:43 PM EDT documented as of this encounter Care Teams Statistical Methods Professor Relationship Specialty Start Date End Date Jason Marrero MD [address] [facility] [address] [facility] [address] [place] [address] PCP - General Family Medicine 05/05/20 documented as of this encounter
--- OUTSIDE RECORDS SUMMARY | 2025-01-05 15:48 | XMS_ITS | Clinical Summary ---
Author Organization [facility] Address [address] [place] [id number] Care Team Providers Care Counselling Psychologist Name Role Phone Jason Marrero MD Primary Care Provider [phone] Allergies Active Allergy Reactions Criticality Noted Date Comments Contrast Dye (Echo Or Unknown Ct/Mr) Hives Medium 10/08/2020 30 years ago pt broke out in hives, unsure what exam it was Medications Wheat Dextrin (EQ FIBER POWDER PO) Take 1 teaspoon(s) by mouth Daily. Active fluticasone (FLONASE) 50 MCG/ACT nasal spray into the nostril(s) as directed by provider Daily. Active fexofenadine (RAJWINDER) 180 MG tablet Take 1 tablet by mouth Daily. Active vitamin D3 125 MCG (5000 UT) capsule capsule Take 1 capsule by mouth Daily. Active tamoxifen (NOLVADEX) 10 MG tablet Take 0.5 tablets by mouth Daily. 15 tablet 11 03/06/2024 Active multivitamin with minerals tablet tablet Take 1 tablet by mouth Daily. Active lisinopril (PRINIVIL,ZESTR IL) 10 MG tablet Take 1 tablet by mouth Daily. Active atorvastatin (LIPITOR) 5 MG tablet Take 1 half tablet by mouth Daily. Active levothyroxine (SYNTHROID, LEVOTHROID) 50 MCG tablet Take 1 tablet by mouth Every Morning. Active Active Problems Problem Noted Date Diagnosed Date Malignant neoplasm of left female breast 024 Malignant neoplasm of upper- outer quadrant of right breast in female, estrogen receptor negative 05/05/2020 Cancer Staging:Clinical:Stage IIIB(cT2, cN1, cM0, G3, ER-, WA-, HER2-) - Signed by Esther Rivera MD on 05/27/2020 Pathologic stage from 11/03/2020:No Stage Recommended(ypT0, pN0(sn), cM0, G3, ER- , WA-, HER2-) - Signed by Ailyn Watson MD on 11/03/2020 Encounters Date Type Department Care Team Description 10/15/2024 7:47 AM EDT - 10/15/2024 11:59 PM EDT Hospital Encounter [facility] [address] [address] [place] [address] Mila Nova MD Intraductal carcinoma in situ of left breast Discharge Disposition: Home or Self Care 10/15/2024 Travel 10/13/2024 Documentation [facility] [address] [place] [address] Kimberly Razo 10/13/2024 Results Follow-Up [facility] [address] [place] [address] Kimberly Razo from Last 3 Months Immunizations Immunization Administration Dates Next Due COVID-19 (MODERNA) 1st,2nd,3 rd Dose Monovalent 06/16/2020,05/05/2020 COVID-19 (MODERNA) Monovalen t Original Booster 02/18/2021 Flu Vaccine Split Quad 02/04/2020,02/17/2019, Fluzone (or Fluarix & Flulav al for VFC) >6mos 02/22/2023,02/21/2022,02/08/2021,2019 Hep B, Unspecified 12/23/2007,04/29/2007, 007 Hepatitis A 08/29/2018,02/07/2018 Family History Medical History Relation Name Comments Breast cancer Neg Hx Ovarian cancer Neg Hx Social History Tobacco Use Types Packs/Day Years Used Date Smoking Tobacco: Never Tobacco Cessation:Counseling Given: Not Answered Alcohol Use Standard Drinks/Week Comments Never 0 [...] on file Sexual Orientation Not on file Last Filed Vital Signs Vital Sign Reading Time Taken Comments Blood Pressure 129/85 09/12/2024 8:31 AM EDT Pulse 94 09/12/2024 8:31 AM EDT Temperature 36.9 C (98.5 F) 09/12/2024 8:31 AM EDT Respiratory Rate 18 09/12/2024 8:31 AM EDT Oxygen Saturation 97% 09/12/2024 8:31 AM EDT Inhaled Oxygen Concentration - - Weight 80.6 kg (177 lb 9.6 oz) 09/12/2024 8:31 A M EDT Height 165.1 cm (5' 5 ) 01/25/2024 9:37 AM EDT Body Mass Index 29.55 01/25/2024 9:37 AM EDT Plan of Treatment Upcoming Encounters Date Type Department Care Team (Late st Contact Info) Description 03/19/2025 9:15 AM EST Office Visit [facility] [address] [address] [place] [address] Esther Rivera MD [address] [facility] [address] [place] [address] 04/13/2025 8:30 AM EST Office Visit [facility] [address] [place] [id number] Yudi Snell, STUDIO DESIGNER [address] [place] [address] 04/23/2025 8:00 AM EST Appointment PSYCHIATRIC [address] [facility] [address] [place] [address] Health Maintenance Due Date Last Done Comments Annual Gynecologic Pelvic an d Breast Exam 1968 Pneumococcal Vaccine 50+ (1 of 2 - PCV) 11/21/1987 ZOSTER VACCINE (1 of 2) 11/21/1987 PAP SMEAR 1989 COLOGUARD 2013 COLON CANCER SCREENING 5 YEA R SIGMOIDOSCOPY 2013 COLONOSCOPY [address] CANCER SCREENING 2013 CT COLONOGRAPHY 2013 FECAL OCCULT BLOOD TEST 2013 FIT Testing (1 year) 2013 ANNUAL PHYSICAL 04/29/2020 HEPATITIS C SCREENING 04/29/2020 PT PLAN OF CARE 11/28/2023 INFLUENZA VACCINE 11/14/2024 02/22/2023, , 02/08/2021, Additional history exists MAMMOGRAM 10/15/2026 10/15/2024, 10/15, 10/30/2023, Additional history exists TDAP/TD VACCINES (2 - Td or Tdap) 07/14/2034 025 Procedures Procedure Name Priority Date/Time Associated Diagnosis Comments MAMMO DIAGNOSTIC DIGITAL TOMOSYNTHESIS BILATERAL W CAD Routine 10/15/2024 8:49 AM EDT Intraductal carcinoma in situ of left breast AMBRY GENETIC ASSESSMENT Routine 10/10/2024 9:44 AM EDT from Last 3 Months Results * Mammo Diagnostic Digital Tomosynthesis Bilateral With CAD (10/15/2024 8:49 AM EDT) Anatomical Region Laterality Modality Breast Bilateral Mammography 10/15/2024 8:36 AM EDT Impressions 10/15/2024 8:38 AM EDT BI-RADS 3, probably benign findings. RECOMMENDATION: 6-month follow-up left diagnostic mammogram is advised per the postlumpectomy protocol. The standard false-negative rate of mammography is between 10% and 25%. Complex patterns or increased breast density will markedly elevate the false-negative rate of mammography. A results letter, in lay terminology, will be given to the patient at the conclusion of the exam. Physician Order Diagnostic Mammogram with Breast Ultrasound if needed. Diagnosis: Abnormal Mammogram 10/15/2024 8:[address] Venkata Quintero MD on Narrative 10/15/2024 8:38 AM EDT EXAMINATION:MAMMO DIAGNOSTIC DIGITAL TOMOSYNTHESIS BILATERAL W CAD- HISTORY: 53-year-old female with a history of right lumpectomy in 2020 and a new left lumpectomy performed in December 2023. Postlumpectomy protocol. TECHNIQUE: 2D and 3D bilateral MLO and cc views were obtained. CAD was utilized. COMPARISON: Prior studies dating back to 09/01/2021. FINDINGS: The breast tissue is heterogeneously dense, which may obscure small masses. There are new, expected left breast postlumpectomy changes. There are stable right breast postlumpectomy changes. No worrisome masses, calcifications, or architectural distortion is otherwise noted bilaterally. us Mila Nova MD IMG MAMMOGRAPHY ORDERABLE S Final Result * (ABNORMAL) [facility] GENETIC RISK ASSESSMENT QUESTIONNAIRE - , (10/10/2024 9:44 AM EDT) NCCN NCCN met(A) [facility] Comment:High Risk Cancer Ris k Assessment 10/10/2024 9:44 AM EDT Mila Nova MD GENETIC TESTING Final Res ult [employer]
[address] [place] [address], [place] [phone] from Last 3 Months Insurance [facility] PPO Care Teams Counselling Psychologist Relationship Specialty Start Date End Date Jason Marrero MD [address] [facility] [address] [place] [id number] PCP - General Family Medicine 05/05/20
--- OUTSIDE RECORDS SUMMARY | 2025-01-05 15:48 | XMS_ITS ---
Author Organization [facility] Address [address] [place] [id number] Care Team Providers Care Ammonia Box Operator Name Role Phone Jason aMrrero MD Primary Care Provider [phone] Active Problems Problem Noted Date Diagnosed Date Malignant neoplasm of left female breast 024 Malignant neoplasm of upper- outer quadrant of right breast in female, estrogen receptor negative 05/05/2020 Cancer Staging:Clinical:Stage IIIB(cT2, cN1, cM0, G3, ER-, WV-, HER2-) - Signed by Esther Rivera MD on 05/27/2020 Pathologic stage from 11/03/2020:No Stage Recommended(ypT0, pN0(sn), cM0, G3, ER- , WV-, HER2-) - Signed by Ailyn Watson MD on 11/03/2020 Current Treatment and Therapy Plans No current plan information found. Past Treatment and Therapy Plans ONCOLOGY TREATMENT Plan Name Start Date Discontinue Date Treatment Medications Discontinue Reason Plan Provider Cycles OP BREAST DD PACLitaxel 07/10/19 21 08/09/2021 PACLItaxel (TAXOL) chemo IVPB 500 mLpegfilgrastim (NEULASTA ONPRO) Therapy Complete Esther Rivera MD 4 of 4 cycles started OP BREAST AC DD DOXOrubicin / Cyclophosphamide 05/14/19 21 07/14/2020 cyclophosphamide (CYTOXAN) chemo IVPBDOXOrubicin (ADRIAMYCIN)pegfil grastim (NEULASTA ONPRO) Therapy Complete Esther Rivera MD 4 of 4 cycles started Therapy Plan 1 - Infusion Treatment Plan Name Start Date Discontinue Date Treatment Medications Discontinue Reason Plan Provider OP CENTRAL VENOUS ACCESS DEVICE ACCESS, CARE, AND MAINTENANCE (CVAD) 05/14/2020 08/09/2021 No medications scheduled. Therapy Complete Esther Rivera MD Lifetime Dose Tracking * Chemical Lifetime Dose Automatic Entry Manual Entr y Doxorubicin 239.141 mg/m2 (440 mg) 239.141 mg/m2 (440 mg) 0 mg/m2 (0 mg) Treatment Summaries Malignant neoplasm of upper-outer quadrant of right breast in female, estrogen receptor negative* Images from the original note were not included. Breast Cancer Survivorship Plan General Information Patient name Reba Mata Date of 1970 Phone Email [email or web address] Cancer Treatment Team Patient Care Team: Esther Rivera MD as Consulting Physician (Hematology and Oncology) Ailyn Watson MD as Consulting Physician (Radiation Oncology) Mila Nova MD as Referring Physician (General Surgery) Provider Phone numbers Care Team Provider: Ailyn Watson MD, ([phone]) Care Team Provider: Mila Nova MD, ([phone]) Care Team Provider: Esther Rivera MD, ([phone]) Post Treatment Care Team Primary Care Physician Jason Marrero MD [facility] [address] [address] Background Information Medical history Past Medical History: Breast cancer (HCC) Drug therapy Surgical history Past Surgical History: BREAST BIOPSY PORTACATH PLACEMENT Tobacco use Social History Tobacco Use Smoking Status Never Smoker Smokeless Tobacco Not on file Family oncology history Cancer-related family history is negative for Breast cancer and Ovarian cancer. Oncology Information Oncology/Hematology History Malignant neoplasm of upper-outer quadrant of right breast in female, estrogen receptor negative (HCC) 05/05/2020 Initial Diagnosis Malignant neoplasm of right breast in female, estrogen receptor negative (CMS/HCC) 05/14/2020 - 07/14/2020 Chemotherapy OP BREAST AC DD DOXOrubicin / Cyclophosphamide 05/14/2020 - Chemotherapy OP CENTRAL VENOUS ACCESS DEVICE ACCESS, CARE, AND MAINTENANCE (CVAD) 05/27/2020 Cancer Staged Staging form: Breast, AJCC 8th Edition - Clinical: Stage IIIB (cT2, cN1, cM0, G3, ER-, WV-, HER2-) - Signed by Esther Rivera MD on 05/27/2020 07/15/2020 - Chemotherapy OP BREAST DD PACLitaxel 10/29/2020 Surgery Surgery Procedure: Lumpectomy Location: Right breast Completeness of resection: No evidence of residual tumor 11/03/2020 Cancer Staged Staging form: Breast, AJCC 8th Edition - Pathologic stage from 11/03/2020: No Stage Recommended (ypT0, pN0(sn), cM0, G3, ER-, WV-, HER2-) -Signed by Ailyn Watson MD on 11/03/2020 12/27/2020 - 01/21/2021 Radiation Radiation OncologyTreatment Course: Reba Mata received 4005 cGy in 15 fractions to right supraclav/breast and 1000 cGy in 5 fractions to tumor bed via External Beam Radiation - EBRT. Complications during Therapy: No concerns stated Modification to Treatment Plan: No Modifications Lifetime Dose Tracking Doxorubicin: 239.141 mg/m2 (440 mg) Treatment Summary Treatment goal [No plan goal] Plan Name OP BREAST AC DD DOXOrubicin / Cyclophosphamide Status Inactive Start Date 05/14/2020 End Date 07/02/2020 Provider Esther Rivera MD Chemotherapy DOXOrubicin (ADRIAMYCIN) chemo injection 110 mg, 108 mg, Intravenous, Once, 4 of 4 cycles Administration: 110 mg (05/14/2020), 110 mg (05/28/2020), 110 mg (06/17/2020), 110 mg (07/01/2020) pegfilgrastim (NEULASTA ONPRO) on-body injector 6 mg, 6 mg, Subcutaneous, Once, 4 of 4 cycles Administration: 6 mg (05/14/2020), 6 mg (05/28/2020), 6 mg (06/17/2020), 6 mg (07/01/2020) cyclophosphamide (CYTOXAN) 1,000 mg in sodium chloride 0.9 % 325 mL chemo IVPB, 1,090 mg, Intravenous, Once, 4 of 4 cycles Administration: 1,000 mg (05/14/2020), 1,000 mg (05/28/2020), 1,000 mg (06/17/2020), 1,000 mg (07/01/2020) Response to treatment Treatment Summary Treatment goal [No plan goal] Plan Name OP BREAST DD PACLitaxel Status Active Start Date 07/15/2020 End Date 08/27/2020 Provider Esther Rivera MD Chemotherapy PACLitaxel (TAXOL) 315 mg in sodium chloride 0.9 % 602.5 mL chemo IVPB, 175 mg/m2 = 315 mg, Intravenous, Once, 4 of 4 cycles Administration: 315 mg (07/15/2020), 315 mg (07/29/2020), 315 mg (08/12/2020), 315 mg (08/26/2020) pegfilgrastim (NEULASTA ONPRO) on-body injector 6 mg, 6 mg, Subcutaneous, Once, 4 of 4 cycles Administration: 6 mg (07/15/2020), 6 mg (07/29/2020), 6 mg (08/12/2020), 6 mg (08/26/2020) Response to treatment Treatment Summary Treatment goal [No plan goal] Plan Name OP CENTRAL VENOUS ACCESS DEVICE ACCESS, CARE, AND MAINTENANCE (CVAD) Status Active Start Date 05/14/2020 End Date Until discontinued Provider Esther Rivera MD Chemotherapy [No matching medication found in this treatment plan] Response to treatment Persistent Treatment-Associated Adverse Effects at Completion of Therapy It is important to recognize that not every person experiences the following adverse events after treatment. You may not have any of these issues, a few or many adverse effects. Experiences are highly variable. Please discuss any adverse effects of cancer treatment with your cancer care team. After Surgical Therapy Breast Conserving Surgery (Lumpectomy) Breast conserving surgery (lumpectomy) involves the removal of the breast mass (cancer lump) and a surrounding area of normal tissue. After surgery, there may be pain and soreness in the chest, underarm or shoulder which should get better over time. Nerves may be damaged in the breast and areas of lymph node removal which may result in numbness and other changes in sensation. Ask your doctor or nurse if you have issues with pain, numbness or tingling, or any changes in function or mobility. Breast conserving surgery allows women to keep their breast but the breast may look different than it did before surgery. The breast may be smaller and may be different in size and shape. There will be a scar from the surgery and scar tissue may feel different. Radiation therapy can also affect theway the breast looks and feels. How you think and feel about your body is important and coping withchanges after breast surgery takes time. It's important to look at your scar, which should become less red and swollen over time. It's important to touch your scar, too. Your physician may give you instructions about massaging the scar to help with healing and to soften scar tissue. If you have a partner, let your partner look at and feel the scar when you're ready. Working through feelings aboutthe cancer and changes as a result of surgery may take time and support. Talk with your doctor or nurse about any issues with body image and coping. Survivors of breast cancer should speak with their health care provider regarding the possibility of a genetic or family syndrome. If there does appear to be a family history or possible genetic syndrome, genetic counseling and testing may be recommended. [place] Node Biopsy Removal of the sentinel lymph node is the removal of the first lymph node to which cancer cells aremost likely to spread. After surgery, there may be pain and soreness in the area where the node wasremoved. Nerves may be damaged which may result in numbness or other changes in sensation. While sentinel node biopsy (as opposed to a lymph node dissection where more lymph nodes are removed) decreases the risk of developing lymphedema, the risk is not completely gone. Lymphedema Removal of lymph nodes can slow the normal flow of lymph in the area which can lead to swelling in that limb, also called lymphedema. Survivors who also received radiation therapy to the area where alymph node was removed may be at increased risk of developing lymphedema. In some cases, the lymphedema can occur years after cancer therapy was completed. Lymphedema can cause pain or discomfort, disfigurement, change in function, and increased risk of infection in the affected area and closest limb. Signs of lymphedema can include a feeling of fullness or heaviness, changes in the skin (red, thick, stiff), aching, tightness, and difficulty moving or flexing nearby joints. Other signs could be that your jewelry or clothes, like socks, pants or sleeves, may begin to feel tight on the affectedlimb. As signs of lymphedema could develop months or years after treatment, continue to monitor forsigns and notify your doctor. Several steps can be taken to help prevent and control lymphedema. Survivors should protect the potentially affected limb by avoiding cuts, scrapes, reyna, insect bites, shots/vaccines, blood draws, and IV sticks in order to decrease the risk of developing an infection in the limb. In addition, thesurvivor should protect the limb from the sun to avoid sunburn. Lastly, survivors should avoid tight clothing and jewelry, and blood pressures in the affected limb that might further slow the normal flow of lymph. Survivors of cancer, including those at risk for lymphedema, can and should exercise. Survivors should start slow and gradually increase intensity while monitoring your limb for changes in swelling or redness. If either occurs, stop exercising and notify your doctor for further direction. After Chemotherapy Chemotherapy travels throughout the body and can affect both cancer cells and normal, healthy cells. Damage to healthy cells can cause side effects. Every person doesn't get every side effect, and some people get few, if any. Many side effects go away fairly quickly after treatment ends, but some may take months or even years to completely go away. The time it takes to get over some side effects and get your energy back varies from person to person. It depends on many factors; including your overall health and the drugsyou were given. Some side effects can last a lifetime, such as when chemo causes long-term damage to the heart, lungs, kidneys, or reproductive organs. Certain types of chemo sometimes cause delayed effects, such as a second cancers that may show up many years later. Ask your doctor or nurse if youneed more information. After Radiation Therapy Radiation therapy can cause early and late side effects. Early side effects are those that happen during or shortly after treatment and are usually gone within a few weeks after treatment ends. Late side effects may take months or years to develop and vary depending on the areas of the body included in the field of radiation and the radiation techniques that were used. The most common early side effects are fatigue (feeling tired) and skin changes. Other early side effects are usually related to the area being treated. If you continue to have some skin problems after treatment ends, be gentle with the skin in the treatment area until all signs of irritation are gone and continue to care for your skin as your doctors and nurses have advised. If you continue to have fatigue, you may need to plan your activities to maximize energy, get extra rest while your bodyis still recovering and follow other instructions from your doctors and nurses such as exercise andactivity. terminal operator effects of radiation therapy vary greatly depending on the areas included in the field ofradiation and the radiation techniques that were used. Breast tissue exposed to radiation may become more firm over time and you may notice changes in the size and shape of the breast. The skin wherethe breast was treated may have a different coloration, be more red or appear tanned. If the lymph nodes under the arm (axillary nodes) were in the radiation field, there may be an increased risk of developing lymphedema. Lymphedema is a condition in which fluid collects in the arm or other areas such as the hand, fingers, chest or back and cause swelling. In rare cases, radiation therapy can increase the risk of a second cancer. Ask your doctors and nurses about the risk of custodial effects. Keep your follow up appointments and keep up with recommended health screenings Hormone Therapy Not receiving hormone therapy Care of your Venous Access Device No Venous Access Device currently in place General After Cancer Treatment It is not uncommon for cancer to impact other areas of your life such as relationships, work and mental health. If you develop financial concerns, resources are sometimes available to assist in theseareas. Depression and anxiety can present either during or after cancer diagnosis and treatment. Itis important to discuss with your physician any of these concerns so these resources can be made available to you. General Cancer Support & Resources [facility] [address], [address] [place] [address] Med Onc: Fishing Line Winding Machine Operator Onc: Office Administrative Assistant: Anai Schaefer - Psychiatric Nurse Practitioner: Valerie Calles APRN - [phone] Kick It! (A free smoking cessation program) Financial Counselor and Contact Information: [facility] Financial Counseling - Wood Fence Installer Contact Information: Rosalba Roque - [phone] Wound Ostomy & Continence Nurse: Local Cancer Support Group and Contact Information: Look Good Feel Better: A non-medical, brand-neutral public service program that teaches beauty techniques to people with cancer to help them manage the appearance-related side effects of cancer treatment. The program includes lessons on skin and nail care, cosmetics, wigs and turbans, accessories and styling, helping people with cancer to find some normalcy in a life. - See more at: http://lookgoodfeelbetter.org Journey Toward Empowerment - for Women with Cancer: ([facility]) The Tools and encouragement you need to live your life to the fullest. Free Dinner served @ 6:00pm followed by speaker from 6:30 - 7:30pm. The series runs from January, and meets monthly. Call Chrystal Macedo RN, OCN @ to receive information and upcoming schedule. [place] [facility]: This support group is open to anyone that has been diagnosed with cancer of any type. Meets at 6:30pm on the last Sunday of each month. Location: [facility]; [address] [place] [address]. For more information call Karie Landeros @ . Breast Cancer Support & Resources Local Cancer Support Groups and Contact Information: [employer] ([place]): Breast Cancer Support group. Meets the Sunday of each month at various locations. Please Call Patricio Davis for meeting information @ [phone] or Elke Gama @ [phone]. The Journey: Breast Cancer Support Ministry: Meets the Sunday of each month, 5:00PM @ [place], [place]. Please call Jes Tang at [phone] for additional information. Reach To Recovery: An [employer] peer support group for women with a concern about breast cancer. Patentscan talk with volunteer breast cancer survivors, in person or over the phone, for support & encouragement. Also, after you have completed your journey and would like to give back, you can call the [phone] number to volunteer as a survivor and support to others. For additional information, please call [phone] or go to sss.cancer.org. Surveillance How Frequent? Medical Oncology visits 1 - 4 times per year as clinically appropriate for 5 years, then annually Lab tests With each oncology visit Imaging exams Mammography Every 6 months for approximately 2 years then every 12 month Lymphedema Monitor for lymphedema Genetic Counseling Periodic screening for changes in family history and referral to genetic counseling as indicated Immunizations Influenza Herpes Zoster Pneumococcal Yearly Once As appropriate Tobacco Cessation The patient is not currently a tobacco user. Counseling given: Not Answered Monitor for ongoing toxicities: None Specified Call your doctor if you have any of these signs or symptoms New or worsening symptoms. Pain that is new, unrelieved or bothersome. Difficulty with your emotions, anxiety, and/or depression. Physical problems that affect your abilities in your daily life or those that are bothersome (for example, continued fatigue, trouble sleeping, sexual problems, or edema). Referrals provided There are no referral needs at this time. Self Care Plan Self Care Plan: What You Can Do to Stay Healthy after Treatment for Cancer Cancer treatments may increase your chance of developing other health problems years after you havecompleted treatment. The purpose of this self care plan is to inform you about what steps you can take to maintain good health after cancer treatment. Keep in mind that every person treated for cancer is different and that these recommendations are not intended to be a substitute for the advice of a doctor or other health career coordinator. Please use these recommendations to talk with your health care provider about an appropriate follow up care plan for you. Surveillance for Your Cancer Recommendation Frequency Comments Cancer surveillance visit with medical provider that is focused on detecting signs of recurrence ofyour cancer. For additional information, visit www.livestrong.org or www.cancer.net/patient/[email or web address] Frequency depends on type and stage of cancer you had. (If you had a higher risk cancer, you may be seen more often). Your doctor has provided you with a personalized cancer treatment summary and survivorship care plan. If you need another copy, ask your doctor. General Cancer Screening for Women Cancer screening tests are designed to find cancer or pre-cancerous areas before there are any symptoms and, generally, when treatments are most successful. Various organizations have developed guidelines for cancer screening for women. While these guidelines vary slightly between different organizations, they cover the same basic screening tests for breast, cervical and colorectal cancers. In addition, during routine health examinations (at any age) your health care provider may also evaluate for cancers of the skin, mouth and thyroid. Not all screening tests are right for everyone. Your personal and family cancer history, and/or the presence of a known genetic predisposition, can affect which tests are right for you, and at what age you begin them. Therefore, you should discuss these with your health care provider. Your care plan will also include a section on follow up care foryour type of cancer, and these recommendations override the general screening recommendations for that particular type of cancer in the general population. The [employer] (ACS) recommends these screening guidelines for women: Recommendation Frequency Comments Breast Cancer Screening For more information, see the ACS document Breast Cancer: Early Detection. www.cancer.org/ssLINK/nkmjof-laoiky-xpmno-detection-oj Yearly mammograms starting at age 40, and continuing for as long as a woman is in good health. Clinical breast exam (CBE), performed by a health career coordinator, every three years for women intheir 20s and 30s, and every year for women 40 and over. A monthly breast self-exam (BSE) is a good way to monitor breast health. Women should know how their breasts normally look and feel, and report any change promptly to their health care provider. The ACS recommends that some women - because of their family history, a genetic tendency, or certain other factors - be screened with Magnetic Resonance Imaging (MRI) in addition to mammograms. The numberof women who fall into this category is small (less than 2 percent of all [place] women). Talk with your doctor about your personal history and whether you should have additional tests at an earlier age. Colon and Rectal Cancer Screening For more information see the ACS document Colorectal Cancer: Early Detection. www.cancer.org/ssLINK/rgelqhxsbj-hkyezl-hrptn-detection-oj Options for colon cancer screening can be divided into those that screen for both cancer and polyps, and those that just screen for cancer.Screening should begin at age 45 (unless you are considered high risk (see comments), using one of the following testing schedules: Tests that find polyps and cancer (Preferred over those that find cancer alone. If any of these tests are positive, a colonoscopy should be done.) Flexible sigmoidoscopy every five years, or Colonoscopy every 10 years, or Double-contrast barium enema every five years, or CT colonography (virtual colonoscopy) every five years Tests that primarily test for cancer Yearly fecal occult blood test (FOBT)*, or Yearly fecal immunochemical test (FIT) *, or Stool DNA test (sDNA), interval uncertain* * The multiple stool take-home test should be used. One test done by the doctor in the office is not adequate. A colonoscopy should be done if the test is positive. Talk with your doctor about your medical history, and what colorectal cancer screening test and schedule is best for you. Individuals at higher risk of colon cancer should have screening earlier and potentially more frequently. Those at higher risk of colon and rectal cancer: Individuals with a family history of colon or rectal cancer in a relative who was diagnosed before the age of 60 Individuals with a history of polyps Individuals with inflammatory bowel disease (Crohn's disease or ulcerative colitis) Individuals with a genetic predisposition to colon or rectal cancer, such as hereditary non-polyposis colon cancer (HNPCC) syndrome or familial adenomatous polyposis (FAP) syndrome Cervical Cancer Screening For more information see the ACS document Cervical Cancer: Early Detection. www.cancer.org/.../axlieaqm-txkxfj-sgniixnofl-uzs-hjsax-qtnuiuwls-oj Cervical cancer screening should not begin before age 21. Screening Pap tests should be performed every three years between age 21 and 29 Women age 30 or older should be screened every 3 years with a Pap test or every five years with a combined Pap/Human Papillomavirus (HPV) test. Women 65 years of age or older who have had negative consecutive screening in the preceding 10 years should discontinue screening. Women who have had a total hysterectomy (removal of the uterus and cervix) should also stop having Pap tests, unless the surgery was done as a treatment for cervical cancer or pre-cancer. Women who have had a hysterectomy without removal of the cervix should continue to have Pap tests. Women who have had a history of a serious cervical precancer should continue screening for at least20 years, even if that extends screening past age 65. Women who have been vaccinated against HPV should still follow these screening guidelines. Treatment for most gynecological cancers involves hysterectomy and alters recommendations for Pap tests. Refer to your personalized cancer treatment summary and survivorship care plan to see what the Pap test recommendations are for you. If you need another copy of your care plan, please ask your doctor. Sun Exposure and Skin Cancer Risk Skin cancer is the most commonly diagnosed type of cancer, and rates are on the rise. However, thisis one cancer that in most cases can be prevented or detected early. While you may hear that you need the sun to make vitamin D, in reality you only need a few minutes a day to do this. Exposure to ultraviolet (UV) rays, either by natural sunlight or tanning beds, can lead to skin cancer. In additio n, UV rays lead to other forms of skin damage, including wrinkles, loss of skin elasticity, dark patches (sometimes called age spots or liver spots), and pre- cancerous skin changes (such as dry, scaly, rough patches). Although dark- skinned people are less likely to develop skin cancer, they can anddo develop skin cancers, most often in areas that are not exposed to sun (on the soles of the feet,under nails, and genitals). You can do a lot to protect yourself from damaging UV rays and to detect skin cancer early. Start by practicing sun safety, including using a broad spectrum sunscreen (which protects against UVA and UVB rays) with an SPF of at least 30 every day, avoiding peak sun times (10 a.m. to 4 p.m., when therays are strongest) and wearing protective clothing such as hats, sunglasses and long- sleeved shirts. Examine your skin regularly so you become familiar with any moles or birthmarks. If a mole has changed in any way, you should have a health care provider examine the area. This includes a change in size, shape or color; the development of scaliness, bleeding, oozing, itchiness or pain; or the development of a sore that will not heal. If you have a lot of moles, it may be helpful to make note of moles using photographs or a mole map . For a guide to performing a skin exam, visit www.[facility].com/skincancernet/skin_examinations.html. Healthy Lifestyle For some cancer survivors, the experience is the motivation to making healthy lifestyle changes. Itmay seem insignificant, but these changes have been shown to reduce the risk of the cancer coming back or a new cancer developing. Below are some tips on adopting a healthier lifestyle. Maintaining ahealthy weight is important in cancer prevention, as is physical activity and eating a healthy diet. Strive to incorporate all three pieces of the puzzle: healthy weight, balanced diet and regular exercise. Recommendation Goal Comments Maintain a healthy weight. For more information, visit http://www.nhlbi.nih.gov/health/public/heart/obesity/lose_wt/index.htm www.win.niddk.nih.gov Call the [employer] Talk to your health care team about what a healthy weight is for you, and take stepsto reach and maintain that weight. For many people reaching their ideal weight can be a challenge; however, losing even 5 to 10 poundscan lower blood pressure, blood sugar and cholesterol levels. Weigh yourself weekly to monitor for weight gain/loss Being overweight can increase your chance of your cancer coming back. Maintaining a healthy weight, physical activity and eating a healthy diet are all important in cancer prevention. Being overweight can increase your chance of having high blood pressure, high blood sugar and/or high cholesterol, which can lead to heart disease, diabetes and stroke. If you would like more information about your blood sugar, cholesterol or blood pressure, talk with your primary care provider. Eat a healthy diet, mostly from plant sources. For more information, visit http://www.[facility].gov/food-groups/ Eat healthy, including plenty of fruits and vegetables daily. Drink more water, less soda and juice. Limit how much alcohol you drink (if you drink at all). Strive to have two- thirds of your plate be vegetables, fruits, whole grains and beans, while one- third or less should be an animal product. Choose fish and chicken and limit red meat and processed meats. Limit intake of alcohol to two drinks per day. Exercise. To learn more about recommendations for diet, activity and weight, visit AICR???s Guidelines for Survivors http://preventcancer.aicr.org/site/PageServer?pagename=patients_survivors_guidel deanna ACS Eat Healthy and Get Active www.cancer.org/Healthy/EatHealthyGetActive/index Experts recommend at least 30 minutes of bteezjfj-ow-ijisedjo activity per day, five days a week. Research shows that exercise can help you control your weight, improve your energy level, and help you sleep at night. The lundberg is to find a physical activity you enjoy such as walking, dancing or gardening and do it regularly. If you have been inactivefor a while, start out slowly. You can start out by exercising 10 minutes a day several days a week. If you feel dizzy, short of breath, or have chest pain during exercise, stop exercising and talk with your primary care doctor. Do not use tobacco in any form. For more information, visit http://www.cdc.gov/tobacco/campaign/tips/ If you use tobacco, quit as soon as possible. Smoking is the most preventable cause of in the [place] If you would like more information, ask your doctor or you can call a national hotline at 3(751)-QUIT-NOW. Keep your bones healthy. For more information, visit www.niams.nih.gov/Health.../Bone/Bone_Health/bone_health_for_life For the FRAX (Fracture Risk Assessment) tool, visit: www.shef.ac.uk/FRAX/ , to estimate 10-year risks for fractures Ask your primary care provider aboutscreening for osteoporosis beginning at age 65 or at a younger age if your bone fracture risk is increased. The 10-year risk for osteoporotic fractures can be calculated for individuals by using the FRAX tool and could help to guide screening decisions for women younger than 65 years. Maximize your bone health by eating healthy, getting enough calcium and vitamin D, and exercising regularly. Certain cancer treatments, such as chemotherapy or hormonal therapy, can cause bone loss. In addition, after menopause, women can lose up to 20 percent of their bone density. The good news is that women can maximize their bone density by eating healthy, getting enough calcium and vitamin D, and exercising regularly. Age (years) Calcium per day Vitamin D per day 19 to 49 1000 milligrams 600 units 50 or over 1200 milligrams 800 units Have regular check-ups by a healthcare professional. For more information about healthy screening tests for men visit the U.S. Department of Health and Human Services. http://www.womenshealth.gov/trezxhgpu-ngssb-yyo-vaccines/bxyuyufwq-ktzuw-dye-men / For more information about adult vaccinations visit the CDC: http://www.cdc.gov/vaccines/recs/schedules/adult-schedule.htm Keep up-to-date on general health screening tests, including cholesterol, blood pressure and glucose (blood sugar) levels. Get an annual influenza vaccine (flu shot). Get vaccinated with the pneumococcal vaccine, which prevents a type of pneumonia, and re-vaccinatedas determined by your health care team. Don???t forget dental and eye health! The [employer] recommends adults have their eyes examined every two years until age 60, then annually. People who wear glasses or correctivelenses or are at high risk for eye problems (i.e., diabetics, family history of eye disease) shouldbe seen more frequently. The [employer] recommends adults see their dentist at least once a year. 3 No information on file. No information on file.
--- OUTSIDE RECORDS SUMMARY | 2025-01-05 15:48 | XMS_ITS | Clinical Summary ---
Author Organization Healthcare Address [address] 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 Role Phone Unavailable Primary Care Provider Unavailabl e Social History Tobacco Use Types Packs/Day Years Used Date Smoking Tobacco: Never Assessed Comments Unknown Sex and Gender Information Value Date Recorded Sex Assigned at Not on file Legal Sex Female 9:34 PM EDT Gender Identity Not on file Sexual Orientation Not on file Plan of Treatment Health Maintenance Due Date Last Done Comments [facility]-Depression Screening 1968 [facility]-Infant/Child/Adol SDOH Screenings 1968 [facility]- SDOH Screenings 1986 [facility]-Adult SDOH Screenings 1986 [facility]-DTaP,Tdap,and Td Vaccine s (1 - Tdap) 11/21/1987 [facility]-Hepatitis B Vaccines (1 of 3 - 19+ 3-dose series) 11/21/1987 [facility]-Pap Smear 1989 [facility]-Cervical Cancer Screening 1998 [facility]-HPV/Cotest 1998 CT Colonography 2013 Colonoscopy 2013 FIT-DNA 2013 FIT 2013 FOBT 2013 Sigmoidoscopy 2013 [facility]-Colorectal Cancer Screening 2013 [facility]-Pneumococcal Vaccine: 50 + Years (1 of 1 - PCV) 2018 [facility]-Zoster Vaccines (1 of 2) 2018 [id number] Vaccine (1 - 20 24-25 season) 2024 [facility]-Influenza Vaccine (#1) 2024 HPV Vaccines Aged Out No longer eligi ble based on patient's age to complete this topic [facility]-HIB Vaccines Aged Out No longer e ligible based on patient's age to complete this topic [facility]-Hepatitis A Vaccines Aged Out No longer eligible based on patient's age to complete this topic [facility]-IPV Vaccines Aged Out No longer e ligible based on patient's age to complete this topic [facility]-Rotavirus Vaccines Aged Out No lo nger eligible based on patient's age to complete this topic
--- OUTSIDE RECORDS SUMMARY | 2025-01-05 15:48 | XMS_ITS | Encounter Summary ---
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 Role Phone Jason Marrero MD Primary Care Provider [phone] Encounter Details Date Type Department Care Team (Late Contact Info) Description 12/26/2020 MDT Assessment [facility] [address] [facility] [address] [place] [address] Mila Nova MD [address] [facility] [address] [place] [address] Social History Tobacco Use Types Packs/Day Years [...] Description 03/19/2025 9:15 AM EST Office Visit [facility] [address] [facility] [address] [place] [address] Esther Rivera MD [address] [facility] [address] [place] [address] 04/13/2025 8:30 AM EST Office Visit [facility] [address] [place] [id number] Yudi Snell APRN [address] [place] [address] 04/23/2025 8:00 AM EST Appointment [facility] [address] [facility] [address] [place] [id number] documented as of this encounter Visit Diagnoses Not on filedocumented in this encounter Additional Health Concerns Infection Onset Date Last Indicated Resolved Time COVID Screen (preop/placement) 01/31/2021 02/08/2021 02/08/2021 6:43 PM EDT documented as of this encounter Care Teams Steam Table Worker Relationship Specialty Start Date End Date Jason Marrero MD [address] [facility] [address] [facility] [address] [place] [address] PCP - General Family Medicine 05/05/20 documented as of this encounter
[2025-01-05 16:03] LABS: Albumin Level 4.8 g/dl (3.5-5.0); Chloride 101 mmol/L (98-107)
[2025-01-05 16:04] LABS: Potassium 4.5 mmoL/L (3.5-5.1); Sodium 139 mmol/L (136-145)
[2025-01-05 16:06] LABS: Alanine Aminotransferase 19 U/L (12-78); Anion Gap 14.5 mEq/L (5-15); Aspartate Amino Transferase 26 U/L (14-36); Bilirubin,Total 0.4 mg/dl (0.2-1.3); Blood Urea Nitrogen 15 mg/dl (7-17); Carbon Dioxide 28 mmol/L (22.0-30.0); Creatinine,Serum 0.60 mg/dl (0.52-1.04); Estimated Glomerular Filt Rate 103 ml/min (>60); GFR (African American) 125 ML/MIN (>60)
[2025-01-05 16:07] LABS: Albumin/Globulin Ratio 1.6 (1.1-1.8); Alkaline Phosphatase 44 U/L (38-126); Calcium 10.0 mg/dl (8.4-10.2); Cholesterol 168 mg/dl (140-200); Globulin 3.0 g/dL (1.3-3.2); Glucose 99 mg/dl (74-100); HDL Cholesterol 50 mg/dl (40-60); Total Protein,Serum 7.8 g/dl (6.3-8.2); Triglycerides 76 mg/dl (30-150)
[2025-01-05 16:38] LABS: Thyroid Stimulating Hormone 5.18 uIU/mL (0.465-4.68)
[2025-01-05 16:52] LABS: 25-OH Vitamin D, Total 106 ng/mL (30-100)
[2025-01-05 17:38] LABS: Vitamin B12 862 pg/mL (239-931)
[2025-01-05 18:13] LABS: Free T4 (Free Thyroxine) 1.24 ng/dl (0.78-2.19)
[2025-01-05 22:13] LABS: Hemoglobin A1C 5.5 % (4.0-6.0)
== END 2025-01-05 23:59 | disposition home or self-care (01) ==
LOC: LAB.DROPOF 15:46
PROVIDERS: PCP Nurse Practitioner; Visit Provider Nurse Practitioner
DX: E03.9 Hypothyroidism, unspecified (principal); E78.5 Hyperlipidemia, unspecified; I10 Essential (primary) hypertension; R73.01 Impaired fasting glucose; E55.9 Vitamin D deficiency, unspecified
CPT/HCPCS: 36415; 80053; 80061; 82306; 82607; 83036; 84439; 84443